=== PATIENT | female | born 1985 | race Caucasian/White ===

== ENCOUNTER 2017-11-18 02:46 | Inpatient (IN) | payer OTHER ==
[2017-11-18] MEDS ORDERED: Nalbuphine 20 MG/1 ML Amp IVPUSH PRN (14:38)
[2017-11-18] MEDS ORDERED: Sodium Chloride 0.9% 10 ML Syringe FLUSH PRN (14:38)
[2017-11-18] MEDS ORDERED: Ondansetron 4 MG/2 ML SDV IVPUSH PRN ×2 (14:38→15:27)
[2017-11-18] MEDS ORDERED: Oxytocin/Lactated Ringers 10 UNIT/1,000 ML BAG IV SCH ×2 (14:45→18:00)
[2017-11-18] MEDS ORDERED: fentaNYL 100 MCG/2 ML SDV EPIDUR PRN (15:27)
[2017-11-18] MEDS ORDERED: ePHEDrine 50 MG/ML SDV IVPUSH PRN (15:27)
[2017-11-18] MEDS ORDERED: Bupivacaine/fentaNYL/NS 100 ML Bag EPIDUR SCH (15:30)
--- NOTE | 2017-11-18 15:33 | PCM.PREANE ---
Preanesthetic Assessment - Anesthesia/Transfusion/Family Hx Anesthesia History: Prior Anesthesia Without Reaction Family History of Anesthesia Reaction: No Transfusion History: No Prior Transfusion(s) Intubation History: Unknown - Review of Systems General: No Symptoms Pulmonary: No Symptoms Cardiovascular: No Symptoms Gastrointestinal: No Symptoms (GERD with ) Neurological: No Symptoms Other: Reports: None, Sinus Problem (rhinits) - Physical Assessment NPO Status Date: 11/18/17 NPO Status Time: 11:00 Pulse: 98 O2 Sat by Pulse Oximetry: 99 Respiratory Rate: 18 Blood Pressure: 115/73 Temperature: 36.9 C Vital Signs: Last Vital Signs Temp 36.9 C 11/18/17 14:47 Pulse 99 11/18/17 14:47 Resp 18 11/18/17 14:47 BP 119/69 11/18/17 14:47 Pulse Ox Height: 1.7 m Weight: 79.152 kg ASA Class: 2 Mental Status: Alert & Oriented x3 Airway Class: Mallampati = 2 Dentition: Reports: Normal Dentition, Caries Thyro-Mental Finger Breadths: 3 Mouth Opening Finger Breadths: 3 ROM/Head Extension: Full Lungs: Clear to Auscultation, Normal Respiratory Effort Cardiovascular: Regular Rate, Regular Rhythm, No Murmurs - Lab Values: Laboratory Last Values WBC 11.65 K/mm3 (3.98-10.04) H 11/18/17 14:59 RBC 3.83 M/mm3 (3.98-5.22) L 11/18/17 14:59 Hgb 12.0 gm/L (11.2-15.7) 11/18/17 14:59 Hct 35.6 % (34.1-44.9) 11/18/17 14:59 MCV 93.0 fl (79.4-94.8) 11/18/17 14:59 MCH 31.3 pg (25.6-32.2) 11/18/17 14:59 MCHC 33.7 g/dl (32.2-35.5) 11/18/17 14:59 RDW Std Deviation 46.7 fL (36.4-46.3) H 11/18/17 14:59 Plt Count 265 K/mm3 (182-369) 11/18/17 14:59 MPV 10.2 fl (9.4-12.3) 11/18/17 14:59 Neut % (Auto) 77.9 % (34.0-71.1) H 11/18/17 14:59 Lymph % (Auto) 12.6 % (19.3-51.7) L 11/18/17 14:59 [place] % (Auto) 8.0 % (4.7-12.5) 11/18/17 14:59 Eos % (Auto) 0.8 (0.7-5.8) 11/18/17 14:59 Baso % (Auto) 0.1 % (0.1-1.2) 11/18/17 14:59 Neut # (Auto) 9.08 K/mm3 (1.56-6.13) H 11/18/17 14:59 Lymph # (Auto) 1.47 K/mm3 (1.18-3.74) 11/18/17 14:59 [place] # (Auto) 0.93 K/mm3 (0.24-0.36) H 11/18/17 14:59 Eos # (Auto) 0.09 K/mm3 (0.04-0.36) 11/18/17 14:59 Baso # (Auto) 0.01 K/mm3 (0.01-0.08) 11/18/17 14:59 Above labs reviewed and noted and within acceptable ranges to proceed with epidural. 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: - Past Surgical History HEENT Surgical History: Reports: LASIK Other HEENT Surgeries/Procedures: plastics of ears, Lasik - SUBSTANCE USE Smoking Status *Q: Never Smoker Second Hand Smoke Exposure: No Recreational Drug Use History: No - HOME MEDS Home Medications: Home Meds Vits #93/Iron Fum/FA [ Formula Tablet] 1 tab PO DAILY 11/18/17 [History] - CURRENT (IN HOUSE) MEDS Current Meds: Current Medications Lactated Ringer's (Ringers, Lactated) 1,000 mls @ 100 mls/hr IV ASDIRECTED FRENCH Oxytocin/Lactated Ringer's (Pitocin In Lr 10 Units/1,000 Ml) 10 unit in 1,000 mls @ 500 mls/hr IV .CONTINUOUS FRENCH Nalbuphine HCl (Nubain) 10 mg IVPUSH Q2H PRN PRN Reason: Pain (moderate 4-6) Ondansetron HCl (Zofran) 4 mg IVPUSH Q4H PRN PRN Reason: Nausea/Vomiting Sodium Chloride (Saline Flush) 10 ml FLUSH ASDIRECTED PRN PRN Reason: Keep Vein Open
[2017-11-18] MEDS: Lactated Ringers 1,000 ML IV SCH ×3 (17:48→23:49)
--- NOTE | 2017-11-18 17:50 | PCM.LDHP ---
L&D History of Present Illness - General Date of Service: 11/18/17 Admit Problem/Dx: Patient Status Order with Admit Dx/Problem 11/18/17 14:38 Patient Status [ADT] Routine Admission Diagnosis/Problem Admission Diagnosis/Problem Source of Information: Patient - History of Present Illness Introduction:: 32 year old at 39w5d here for induction of labor due to distance from the hospital. PNC with myself without complications. - Related Data Allergies/Adverse Reactions: Allergies Allergy/AdvReac Type Severity Reaction Status Date / Time No Known Allergies Allergy Verified 09/14/15 11:31 Home Medications: Home Meds Vits #93/Iron Fum/FA [ Formula Tablet] 1 tab PO DAILY 11/18/17 [History] Past Medical History - Past Health History Medical/Surgical History: Denies Medical/Surgical History [employer] History: Reports: - Past Surgical History HEENT Surgical History: Reports: LASIK Other HEENT Surgeries/Procedures: plastics of ears, Lasik Social & Family History - Family History Family Medical History: Noncontributory - Tobacco Use Smoking Status *Q: Never Smoker Second Hand Smoke Exposure: No - Caffeine Use Caffeine Use: Reports: None - Recreational Drug Use Recreational Drug Use: No H&P Review of Systems - Review of Systems: Review Of Systems: See Below General: Reports: No Symptoms HEENT: Reports: No Symptoms Pulmonary: Reports: No Symptoms Cardiovascular: Reports: No Symptoms Gastrointestinal: Reports: No Symptoms Genitourinary: Reports: No Symptoms, Other (irregular contractions) Musculoskeletal: Reports: No Symptoms Skin: Reports: No Symptoms Psychiatric: Reports: No Symptoms Neurological: Reports: No Symptoms Hematologic/Lymphatic: Reports: No Symptoms Immunologic: Reports: No Symptoms L&D Exam - Exam Exam: See Below - Vital Signs Vital Signs: Last Vital Signs Temp 36.9 C 11/18/17 15:36 Pulse 98 11/18/17 15:36 Resp 18 11/18/17 15:36 BP 115/73 11/18/17 15:36 Pulse Ox 99 11/18/17 15:36 Weight: 79.152 kg - OB Specific Contraction Intensity: Mild Movement: Active Heart Tones: Present Heart Rate (FHR) Variability: Moderate (6-25 bmp) Presentation: Vertex - Haines Score Haines Score Cervix Position: Midposition Haines Score Consistency: Soft Haines Score Effacement: 51-70% Haines Score Dilation: 1-2 cm Haines Score Infant's Station: -3 Haines Score Total: 6 - Exam General: Alert, Oriented HEENT: PERRLA, Conjunctiva Clear, EACs Clear, EOMI, Hearing Intact, Mucosa Moist & [place], Nares Patent, Normal Nasal Septum, Posterior Pharynx Clear, TMs Clear Neck: Supple, Trachea Midline Lungs: Clear to Auscultation, Normal Respiratory Effort Cardiovascular: Regular Rate, Regular Rhythm GI/Abdominal Exam: Normal Bowel Sounds, Soft, Non-Tender, No Organomegaly, No Distention, No Abnormal Bruit, No Mass, Pelvis Stable Rectal Exam: Normal Exam, Normal Rectal Tone Genitourinary: Normal external exam, Normal bimanual exam, Normal speculum exam Back Exam: Normal Inspection, Full Range of Motion Extremities: Normal Inspection, Normal Range of Motion, Non-Tender, No Pedal Edema, Normal Capillary Refill Skin: Warm, Dry, Intact Neurological: Cranial Nerves Intact, Reflexes Equal Bilateral Psychiatric: Alert, Normal Affect, Normal Mood - Patient Data Lab Results Last 24 hrs: Laboratory Results - last 24 hr 11/18/17 Range/Units 14:59 WBC 11.65 H (3.98-10.04) K/mm3 RBC 3.83 L (3.98-5.22) M/mm3 Hgb 12.0 (11.2-15.7) gm/L Hct 35.6 (34.1-44.9) % MCV 93.0 (79.4-94.8) fl MCH 31.3 (25.6-32.2) pg MCHC 33.7 (32.2-35.5) g/dl RDW Std Deviation 46.7 H (36.4-46.3) fL Plt Count 265 (182-369) K/mm3 MPV 10.2 (9.4-12.3) fl Neut % (Auto) 77.9 H (34.0-71.1) % Lymph % (Auto) 12.6 L (19.3-51.7) % [place] % (Auto) 8.0 (4.7-12.5) % Eos % (Auto) 0.8 (0.7-5.8) Baso % (Auto) 0.1 (0.1-1.2) % Neut # (Auto) 9.08 H (1.56-6.13) K/mm3 Lymph # (Auto) 1.47 (1.18-3.74) K/mm3 [place] # (Auto) 0.93 H (0.24-0.36) K/mm3 Eos # (Auto) 0.09 (0.04-0.36) K/mm3 Baso # (Auto) 0.01 (0.01-0.08) K/mm3 Result Diagrams: 11/18/17 14:59 Problem List Initiated/Reviewed/Updated: Yes Orders Last 24hrs: Active Orders 24 hr Category Date Time Status Patient Status [ADT] Routine ADT 11/18/17 14:38 Active Activity as Tolerated [RC] PFP Care 11/18/17 14:38 Active Communication Order [RC] ASDIRECTED Care 11/18/17 14:38 Active Heart Tones [RC] ASDIRECTED Care 11/18/17 14:39 Active Notify Provider [RC] ASDIRECTED Care 11/18/17 15:27 Active Notify Provider [RC] PFP Care 11/18/17 14:38 Active Notify Provider [RC] PRN Care 11/18/17 14:38 Active Oxygen Therapy [RC] ASDIRECTED Care 11/18/17 15:27 Active Peripheral IV Care [RC] . DIRECTED Care 11/18/17 14:39 Active Pulse Oximetry [RC] ASDIRECTED Care 11/18/17 15:27 Active Pump Management, Intrathecal [RC] ASDIRECTED Care 11/18/17 14:41 Active Urinary Catheter Assessment [RC] ASDIRECTED Care 11/18/17 14:38 Active Vital Signs [RC] PER UNIT ROUTINE Care 11/18/17 14:38 Active Regular Diet [DIET] Diet 11/18/17 Lunch Active Bupivacaine/fentaNYL/NS [fentaNYL/Bupivacaine/NS 2 MCG- Med 11/18/17 15:30 Active 0.125% 100 ML] 100 ml EPIDUR ASDIRECTED Lactated Ringers [Ringers, Lactated] 1,000 ml Med 11/18/17 14:45 Active IV ASDIRECTED Nalbuphine [Nubain] Med 11/18/17 14:38 Active 10 mg IVPUSH Q2H PRN Ondansetron [Zofran] Med 11/18/17 15:27 Active 4 mg IVPUSH ONETIME PRN Ondansetron [Zofran] Med 11/18/17 14:38 Active 4 mg IVPUSH Q4H PRN Oxytocin/Lactated Ringers [Pitocin in LR 10 Units/1,000 Med 11/18/17 14:45 Active ML] 10 unit in 1,000 ml IV .CONTINUOUS Sodium Chloride 0.9% [Saline Flush] Med 11/18/17 14:38 Active 10 ml FLUSH ASDIRECTED PRN ePHEDrine [ePHEDrine Sulfate] Med 11/18/17 15:27 Active 5 mg IVPUSH ASDIRECTED PRN fentaNYL [Sublimaze] Med 11/18/17 15:27 Active 100 mcg EPIDUR Q3H PRN Electronic Heart Tones Ext w TOCO [WOMSER] Oth 11/18/17 14:38 Ordered Routine Electronic Heart Tones Internal [WOMSER] Per Unit Oth 11/18/17 14:38 Ordered Routine Peripheral IV Insertion Adult [OM.PC] Routine Oth 11/18/17 14:38 Ordered Resuscitation Status Routine Resus Stat 11/18/17 14:38 Ordered Medication Orders Ephedrine Sulfate (Ephedrine Sulfate) 5 mg IVPUSH ASDIRECTED PRN PRN Reason: Hypotension Fentanyl (Sublimaze) 100 mcg EPIDUR Q3H PRN PRN Reason: Pain Fentanyl/Bupivacaine HCl (Fentanyl/Bupivacaine/Ns 2 Mcg-0.125% 100 Ml) 100 ml EPIDUR ASDIRECTED FRENCH Lactated Ringer's (Ringers, Lactated) 1,000 mls @ 100 mls/hr IV ASDIRECTED FRENCH Last Admin: 11/18/17 17:48 Dose: 100 mls/hr Oxytocin/Lactated Ringer's (Pitocin In Lr 10 Units/1,000 Ml) 10 unit in 1,000 mls @ 500 mls/hr IV .CONTINUOUS [facility] Nalbuphine HCl (Nubain) 10 mg IVPUSH Q2H PRN PRN Reason: Pain (moderate 4-6) Ondansetron HCl (Zofran) 4 mg IVPUSH Q4H PRN PRN Reason: Nausea/Vomiting Ondansetron HCl (Zofran) 4 mg IVPUSH ONETIME PRN PRN Reason: Nausea/Vomiting Sodium Chloride (Saline Flush) 10 ml FLUSH ASDIRECTED PRN PRN Reason: Keep Vein Open Assessment/Plan Comment:: Term induction. Anticipate unless otherwise indicated. Pitocin. AROM prn.
--- NOTE | 2017-11-19 03:01 | PCM.SN ---
- Free Text/Narrative Note: Uncomplicated at 0246. Vigorous female. 8/9 Apgars. Head delivered in controlled manner over intact perineum. Body and shoulders atraumatically. Cord clamped and cut. Cord blood collected. Placenta spontaneous and intact. EBL 200
[2017-11-19] MEDS ORDERED: Docusate Sodium 100 MG Cap PO PRN (03:20)
[2017-11-19] MEDS ORDERED: Lanolin 100% Cream 7 GM Tube TOP PRN (03:20)
[2017-11-19] MEDS ORDERED: Witch Hazel Medicated Pads 100/Jar TOP PRN (03:20)
[2017-11-19] MEDS ORDERED: Benzocaine/Menthol 20%-0.5% Spray 56 GM Canister TOP PRN (03:20)
[2017-11-19] MEDS: Ibuprofen 600 MG Tab PO PRN ×2 (09:27→17:58)
[2017-11-19] MEDS ORDERED: Acetaminophen 325 MG Tab PO PRN (21:15)
[2017-11-19] MEDS ORDERED: Bupivacaine 0.25% 10 ML SDV ONE (22:22)
[2017-11-20] MEDS: Ibuprofen 600 MG Tab PO PRN (03:22)
[2017-11-20 04:36] VITALS: BP 108/69
--- NOTE | 2017-11-20 07:34 | PCM.DCSUM1 ---
Discharge Summary - Discharge Data Discharge Date: 11/20/17 Discharge Disposition: Home, Self-Care 01 Condition: Good - Patient Summary/Data Hospital Course: Unremarkable course - Patient Instructions Diet: Usual Diet as Tolerated Activity: No Strenuous Activities Driving: May Drive Today Showering/Bathing: May Shower Notify Provider of: Fever, Increased Pain, Swelling and Redness, Drainage, Nausea and/or Vomiting - Discharge Plan Home Medications: Home Meds Vits #93/Iron Fum/FA [ Formula Tablet] 1 tab PO DAILY 11/18/17 [History] Referrals: Mary Holden MD [Primary Care Provider] - - Discharge Summary/Plan Comment DC Time >30 min.: No - Patient Data Vitals - Most Recent: Last Vital Signs Temp 36.4 C 11/20/17 03:25 Pulse 79 11/20/17 03:25 Resp 16 11/20/17 03:25 BP 108/69 11/20/17 03:25 Pulse Ox 98 11/20/17 03:25 Weight - Most Recent: 79.152 kg I&O - Last 24 hours: Intake & Output 11/19/17 11/20/17 11/20/17 22:59 06:59 14:59 Intake Total 0 Balance 0 Lab Results - Last 24 hrs: Laboratory Results - last 24 hr 11/19/17 Range/Units 06:31 Blood Type A NEGATIVE Gel Antibody Screen Negative Screen 0 ros/5 flds - neg RhIG Candidate? Yes Rhogam Indicated Yes, baby rh pos H Med Orders - Current: Current Medications Acetaminophen (Tylenol) 325 mg PO Q4H PRN PRN Reason: Pain Last Admin: 11/19/17 21:29 Dose: 325 mg Benzocaine/Menthol (Dermoplast Pain Relief [place]) 0 gm TOP ASDIRECTED PRN PRN Reason: Perineal Comfort Measure Last Admin: 11/19/17 04:56 Dose: 1 canister Docusate Sodium (Colace) 100 mg PO BID PRN PRN Reason: Constipation Emollient Ointment (Lansinoh Hpa) 0 gm TOP ASDIRECTED PRN PRN Reason: Sore Nipples Ibuprofen (Motrin) 600 mg PO Q6H PRN PRN Reason: Mild pain or fever Last Admin: 11/20/17 03:22 Dose: 600 mg Witch Natalie (Tucks) 1 pad TOP ASDIRECTED PRN PRN Reason: Hemorrhoid pain Last Admin: 11/19/17 04:56 Dose: 1 tub Discontinued Medications Ephedrine Sulfate (Ephedrine Sulfate) 5 mg IVPUSH ASDIRECTED PRN PRN Reason: Hypotension Fentanyl (Sublimaze) 100 mcg EPIDUR Q3H PRN PRN Reason: Pain Last Admin: 11/18/17 23:16 Dose: 100 mcg Fentanyl/Bupivacaine HCl (Fentanyl/Bupivacaine/Ns 2 Mcg-0.125% 100 Ml) 100 ml EPIDUR ASDIRECTED FRENCH Last Admin: 11/18/17 23:16 Dose: 100 ml Lactated Ringer's (Ringers, Lactated) 1,000 mls @ 100 mls/hr IV ASDIRECTED FRENCH Last Admin: 11/18/17 23:49 Dose: 100 mls/hr Oxytocin/Lactated Ringer's (Pitocin In Lr 10 Units/1,000 Ml) 10 unit in 1,000 mls @ 500 mls/hr IV .CONTINUOUS FRENCH Oxytocin/Lactated Ringer's (Pitocin In Lr 10 Units/1,000 Ml) 10 unit in 1,000 mls @ 12 mls/hr IV TITRATE FRENCH; 2 MUNITS/MIN PRN Reason: Protocol Last Titration: 11/19/17 02:33 Dose: 4 munits/min, 24 mls/hr Nalbuphine HCl (Nubain) 10 mg IVPUSH Q2H PRN PRN Reason: Pain (moderate 4-6) Ondansetron HCl (Zofran) 4 mg IVPUSH Q4H PRN PRN Reason: Nausea/Vomiting Ondansetron HCl (Zofran) 4 mg IVPUSH ONETIME PRN PRN Reason: Nausea/Vomiting Sodium Chloride (Saline Flush) 10 ml FLUSH ASDIRECTED PRN PRN Reason: Keep Vein Open *Q Meaningful Use (DIS) - VTE *Q VTE Criteria *Q: - Stroke *Q Stroke Criteria *Q: - AMI *Q AMI Criteria *Q:
== END 2017-11-20 09:29 | disposition home or self-care (01) | DRG 775 ==
LOC: JD.OB 02:46 → OBSVTOIN 11-19 02:46 → JD.OB 11-19 02:46
PROVIDERS: ADMIT Obstetrics & Gynecology; ATTEND Obstetrics & Gynecology
PROC: 10E0XZZ Delivery of Products of Conception, External Approach (ICD-10-PCS; principal; 2017-11-19)
PROC: 10907ZC Drainage of Amniotic Fluid, Therapeutic from Products of Conception, Via Natural or Artificial Opening (ICD-10-PCS; 2017-11-19)
PROC: 3E033VJ Introduction of Other Hormone into Peripheral Vein, Percutaneous Approach (ICD-10-PCS; 2017-11-19)
PROC: 00HU33Z Insertion of Infusion Device into Spinal Canal, Percutaneous Approach (ICD-10-PCS; 2017-11-19)
PROC: 3E0R3BZ Introduction of Anesthetic Agent into Spinal Canal, Percutaneous Approach (ICD-10-PCS; 2017-11-19)
DX: O80 Encounter for full-term uncomplicated delivery (principal); Z3A.40 40 weeks gestation of pregnancy; Z37.0 Single live birth
CPT/HCPCS: 36415; 51702; 59409; 85025; 85461; 86850; 86900; 86901; A9270-GY; J2590; J2790; J3010; J7120